=== PATIENT | female | born 1950 | race Caucasian/White ===

== ENCOUNTER 2016-11-11 22:07 | Emergency (ER) | payer OTHER ==
[~2016-11-11] VITALS: Ht 160 cm; Wt 57.0 kg
[2016-11-11 22:19] VITALS: BP 225/91; PULSE 79; RESP 24; TEMP 98.5; O2SAT 97
[2016-11-11] MEDS ORDERED: ANTIDEPRESSANT (22:42)
[2016-11-11 23:11] LABS: AUTOMATED NEUTROPHIL # 4.1 TH/MM3 (1.8-7.7); BASOPHIL # 0.1 TH/MM3 (0-0.2); BASOPHIL % 1.5 % (0.0-2.0); EOSINOPHIL # 0.2 TH/MM3 (0-0.4); EOSINOPHIL % 3.2 % (0.0-4.0); HEMATOCRIT 40.8 % (35.0-46.0); HEMO FLAGS DIFF FINAL; LYMPHOCYTE # 1.8 TH/MM3 (1.0-4.8); MEAN CELL VOLUME 89.4 FL (80.0-100.0); MEAN CORPUSCULAR HGB CONC 32.4 % (32.0-36.0); MONO % 6.6 % (0.0-8.0); NEUT % 61.7 % (16.0-70.0); PLATELET COUNT 162 TH/MM3 (150-450); RED BLOOD COUNT 4.56 MIL/MM3 (4.00-5.30); RED CELL DISTRIBUTION WIDTH 13.9 % (11.6-17.2); WHITE BLOOD COUNT 6.7 TH/MM3 (4.0-11.0)
[2016-11-11 23:18] LABS: BACTERIA, URINE RARE /hpf; BLOOD, URINE NEG (NEG); COMMENT (UR) CULT NOT INDICATED; CULTURE IF INDICATED CULT NOT INDICATED; GLUCOSE,URINE NEG (NEG); KETONE, URINE NEG (NEG); NITRITE,URINE NEG (NEG); PH, URINE 5.5 (5.0-8.5); URINE COLOR LIGHT-YELLOW (YELLW/STRAW)
[2016-11-11 23:28] LABS: ALT (GPT) 30 U/L (10-53); ANION GAP 12 MEQ/L (5-15); AST (GOT) 32 U/L (15-37); BICARBONATE 21.8 MEQ/L (21.0-32.0); BLOOD UREA NITROGEN 15 MG/DL (7-18); CHLORIDE 103 MEQ/L (98-107); GLOMERULAR FILTRATION RATE 69 ML/MIN (>89); SODIUM (NA) 137 MEQ/L (136-145)
[2016-11-11 23:31] LABS: ALKALINE PHOSPHATASE 69 U/L (45-117); TOTAL BILIRUBIN ADULT 0.2 MG/DL (0.2-1.0)
[2016-11-11 23:34] LABS: ALCOHOL 112 MG/DL (0-5)
--- NOTE | 2016-11-11 23:58 | PD ---
HPI . Suicidal ideation Chief Complaint: Psychiatric Symptoms Time Seen by Provider: 23:07 Travel History International Travel<30 days: No Contact w/Intl Traveler<30days: No Traveled to known affect area: No History of Present Illness HPI This patient is brought to us as a Pham Act because of an expression of suicidal ideation. The patient reports that she was in a verbal altercation with her estranged significant other. She was at his home. She states that he told her to leave that she did not want to. The police were called. On the arrival of the police, she told the police that she felt like killing herself. She states that she really did not mean that and has no intention of hurting herself. She reports no previous suicidal ideation or attempt. She states that she does have a safe place to go and she has someone who can be with her this evening. She is able to contract for safety. [facility] Past Medical History Anxiety: Yes Dementia: Yes Past Surgical History Other Surgery: Yes (HERNIA, LUNG ) Social History Alcohol Use: Yes Tobacco Use: No Substance Use: No Allergies-Medications (Allergen,Severity, Reaction): Coded Allergies: Iodinated Contrast- Oral and IV Dye (Verified Allergy, Unknown, 11/11/16) Reported Meds & Prescriptions Reported Meds & Active Scripts Active Reported [Antidepressant ] Review of Systems Except as stated in HPI: all other systems reviewed are Neg Psychiatric: Positive: Depression, No: Suicidal Ideations Physical Exam Narrative GENERAL: Awake and alert and in no acute distress. SKIN: Warm and dry. HEAD: Atraumatic. Normocephalic. EYES: Pupils equal and round. NECK: Trachea midline. CARDIOVASCULAR: Regular rate and rhythm. RESPIRATORY: No accessory muscle use. MUSCULOSKELETAL: No obvious deformities. No edema. NEUROLOGICAL: Awake and alert. No obvious cranial nerve deficits. Motor grossly within normal limits. Normal speech. PSYCHIATRIC: Tearful. Good eye contact with the examiner. Good judgment. No SI/HI. Data Data Last Documented VS Vital Signs Date Time Temp Pulse Resp B/P (MAP) Pulse Ox O2 Delivery O2 Flow Rate FiO2 11/11/16 22:19 98.5 79 24 225/91 (135) 97 Orders Orders Complete Blood Count With Diff (11/11/16 22:15) Comprehensive Metabolic Panel (11/11/16 22:15) Urinalysis - C+S If Indicated (11/11/16 22:15) Psych Screen (11/11/16 22:15) Drug Screen, Random Urine (11/11/16 22:15) Alcohol (Ethanol) (11/11/16 22:15) Labs Laboratory Tests Test 11/11/16 22:55 White Blood Count 6.7 TH/MM3 Red Blood Count 4.56 MIL/MM3 Hemoglobin 13.2 GM/DL Hematocrit 40.8 % Mean Corpuscular Volume 89.4 FL Mean Corpuscular Hemoglobin 29.0 PG Mean Corpuscular Hemoglobin Concent 32.4 % Red Cell Distribution Width 13.9 % Platelet Count 162 TH/MM3 Mean Platelet Volume 9.6 FL Neutrophils (%) (Auto) 61.7 % Lymphocytes (%) (Auto) 27.0 % Monocytes (%) (Auto) 6.6 % Eosinophils (%) (Auto) 3.2 % Basophils (%) (Auto) 1.5 % Neutrophils # (Auto) 4.1 TH/MM3 Lymphocytes # (Auto) 1.8 TH/MM3 Monocytes # (Auto) 0.4 TH/MM3 Eosinophils # (Auto) 0.2 TH/MM3 Basophils # (Auto) 0.1 TH/MM3 CBC Comment DIFF FINAL Differential Comment Urine Color LIGHT-YELLOW Urine Turbidity CLEAR Urine pH 5.5 Urine Specific [place] 1.004 Urine Protein NEG mg/dL Urine Glucose (UA) NEG mg/dL Urine Ketones NEG mg/dL Urine Occult Blood NEG Urine Nitrite NEG Urine Bilirubin NEG Urine Urobilinogen LESS THAN 2.0 MG/DL Urine Leukocyte Esterase NEG Urine RBC LESS THAN 1 /hpf Urine WBC LESS THAN 1 /hpf Urine Bacteria RARE /hpf Microscopic Urinalysis Comment CULT NOT INDICATED Blood Urea Nitrogen 15 MG/DL Creatinine 0.83 MG/DL Random Glucose 101 MG/DL Total Protein 7.1 GM/DL Albumin 3.7 GM/DL Calcium Level 9.2 MG/DL Alkaline Phosphatase 69 U/L Aspartate Amino Transf (AST/SGOT) 32 U/L Alanine Aminotransferase (ALT/SGPT) 30 U/L Total Bilirubin 0.2 MG/DL Sodium Level 137 MEQ/L Potassium Level 4.0 MEQ/L Chloride Level 103 MEQ/L Carbon Dioxide Level 21.8 MEQ/L Anion Gap 12 MEQ/L Estimat Glomerular Filtration Rate 69 ML/MIN Urine Opiates Screen NEG Urine Barbiturates Screen NEG Urine Amphetamines Screen NEG Urine Benzodiazepines Screen NEG Urine Cocaine Screen NEG Urine Cannabinoids Screen NEG Ethyl Alcohol Level 112 MG/DL MDM Medical Decision Making Medical Screen Exam Complete: Yes Emergency Medical Condition: Yes Differential Diagnosis Differential diagnosis includes but is not limited to depression with suicidal gesture, suicide attempt, suicidal ideation, attention seeking behavior. Narrative Course This patient was brought to us as a Pham Act. She inadvertently expressed to a police justice that she was thinking about killing herself. She states that she did not mean that. She states that she does not now nor has she ever had an intention of hurting herself. This patient has a safe place to go. Her sister is coming to pick her up. The Pham Act is being lifted. Diagnosis Primary Impression: Suicidal ideation Disposition: 01 DISCHARGE HOME Condition: Stable Deloris Caldwell MD Nov 11, 2016 23:58
== END 2016-11-12 00:07 | disposition home or self-care (01) ==
LOC: NEPC 22:07
DX: Z02.89 Encounter for other administrative examinations (principal); F32.9 Major depressive disorder, single episode, unspecified; R45.851 Suicidal ideations
CPT/HCPCS: 80053; 80307; 81001; 85025; 99285